=== PATIENT | female | born 1930 | race African-American/Black ===

== ENCOUNTER 2019-03-17 09:22 | Observation (INO) ==
[2019-03-17] MEDS ORDERED: ASPIRIN PO ONE (09:52)
[2019-03-17] MEDS ORDERED: PEPCID PO ONE (09:53)
[2019-03-17] MEDS ORDERED: PROTONIX PO ONE (09:54)
[2019-03-17] MEDS ORDERED: G.I. COCKTAIL PO ONE (09:54)
--- NOTE | 2019-03-17 10:20 | Diag Imaging Result Doc PS360 ---
EXAM: CHEST-PORTABLE HISTORY: cp TECHNIQUE: Portable chest single view COMPARISON: 08/18/2017 FINDINGS: The lungs are well expanded. The heart is mildly enlarged. The vessels are not distended. There are no infiltrates. No effusion identified. Long-standing shoulder arthritis bilaterally. IMPRESSION: Mild cardiomegaly. Electronically signed by Merrill Thomas 03/17/2019 10:18 AM
[2019-03-17 10:53] LABS: BASO# 0.03 X1000 (0.0-0.2); BASO% 0.5 % (0.0-0.8); EOS# 0.08 X1000 (0.0-0.7); EOS% 1.3 % (0.0-10.0); HEMATOCRIT 38.5 % (37.0-47.0); HEMOGLOBIN 12.7 g/dL (12.0-16.0); IMM GRAN# 0.01 X1000 (0.0-0.04); IMM GRAN% 0.2 % (0.0-0.5); LYMPH# 2.14 X1000 (1.2-3.4); LYMPH% 35.5 % (20.5-51.1); MCH 31.6 PG (27-31); MCV 95.8 FL (81-99); MONO# 0.49 X1000 (0.11-0.59); MONO% 8.1 % (1.7-9.3); MPV 10.2 FL (7.4-10.4); NEUT# 3.27 X1000 (1.4-6.5); NEUT% 54.4 % (42.2-75.2); PLT 241 X1000 (130-400); RBC 4.02 XMIL (4.2-5.4); RDW 12.3 % (11.5-14.5); WBC 6.02 X1000 (4.8-10.8)
--- NOTE | 2019-03-17 11:11 | EKG Report ---
Test Performed on : 03/17/2019 10:21:47 AM Test Reason : cp Blood Pressure : / mmHG Vent. Rate : 085 BPM Atrial Rate : 085 BPM P-R Int : 162 ms QRS Dur : 092 ms QT Int : 400 ms P-R-T Axes : 067 -34 048 degrees QTc Int : 476 ms Normal sinus rhythm. Left axis deviation Minimal voltage criteria for LVH, may be normal variant Abnormal ECG When compared with ECG of 18-AUG-2017 17:23, No significant change was found Unconfirmed Result
[2019-03-17 11:15] LABS: CALCIUM 10.1 mg/dL (8.8-10.2); CREATININE 0.9 mg/dL (0.5-0.9); POTASSIUM 3.6 mmol/L (3.5-5.1)
[2019-03-17 11:33] LABS: BILIRUBIN URINE NEGATIVE (NEGATIVE); BLOOD URINE NEGATIVE (NEGATIVE); CLARITY CLEAR (CLEAR); COLOR YELLOW; GLUCOSE URINE NEGATIVE (NEGATIVE); KETONE URINE NEGATIVE (NEGATIVE); LEUKOCYTES URINE NEGATIVE (NEGATIVE); NITRITE URINE NEGATIVE (NEGATIVE); PROTEIN URINE NEGATIVE (NEGATIVE); UROBILINOGEN URINE NORMAL
[2019-03-17 11:38] LABS: URINE BACTERIA NEGATIVE /HFP; URINE CAST NONE SEEN /LPF; URINE CRYSTAL NONE SEEN /HPF; URINE EPITHELIAL CELLS <10 /HPF (<10); URINE RBC <10 /HPF (<10); URINE SOURCE CLEAN CATCH; URINE WBC <10 /HPF (<10); URINE YEAST NONE SEEN /HPF
--- NOTE | 2019-03-17 12:29 | PROVIDER DOCUMENTATION ---
This chart was entered by Kimberli Chand Scribe, acting as scribe for Raghu Longo MD. HPI-Chest Pain - General Chief Complaint: Chest Pain Stated Complaint: CP LAST NIGHT Time Seen by Provider: 03/17/19 09:39 Source: patient Allergies/Adverse Reactions: Patient Allergies Allergy/AdvReac Type Severity Reaction Status Date / Time No Known Allergies Allergy Verified 09/12/17 13:43 Home Medications: Home Medication List Medication Instructions Recorded Confirmed Last Taken Type Amlodipine Besylate [Norvasc] 10 mg PO DAILY 03/14/14 09/12/17 09/12/17 History Levothyroxine [Synthroid] 75 mcg PO DAILY 03/14/14 09/12/17 09/12/17 History Simvastatin [Zocor] 20 mg PO DAILY 03/14/14 09/12/17 09/11/17 History Aspirin 81 mg PO DAILY 08/18/17 09/12/17 09/12/17 History Acetaminophen with Codeine 1 ea PO Q4H PRN PRN #5 tab 09/12/17 Unknown Rx [Tylenol with Codeine #3] Butalbital/APAP/Caffeine [Fioricet] 1 tab PO DAILY PRN 09/12/17 09/12/17 Unknown History - History of Present Illness-CP Nature of Presenting Problem: Patient is a 89 year old female who presents with left side chest pain that started last night. Denies nausea, shortness of breath, and diaphoresis. Reports pain does not radiate. No prior cardaic disease or surgery. Location: reports: other (left side) Chest Pain Radiation: reports: no radiation Quality of Pain: reports: throbbing Severity in ED: mild Onset/Duration: last night Timing: still present Context/Activities at Onset: reports: light activity Modifying Factors: improves with: nothing Associated Symptoms: reports: denies symptoms Similar Symptoms Previously?: Yes Recently Seen Here or By Another Healthcare Provider: No Review of Systems - Adult - REVIEW OF SYSTEMS - ADULT Constitutional: reports: no symptoms reported. denies: chills, fever, fatique Eyes: reports: no symptoms reported Ears, Nose, Mouth & Throat: reports: no symptoms reported Cardiovascular: reports: see HPI, chest pain. denies: irregular heart rate, palpitations Respiratory: reports: no symptoms reported. denies: cough, shortness of breath, wheezing Gastrointestinal: reports: no symptoms reported. denies: diarrhea, nausea, vomiting Genitourinary: reports: no symptoms reported. denies: dysuria, hematuria, urinary retention Musculoskeletal: reports: no symptoms reported Integumentary: reports: no symptoms reported Neurological: reports: no symptoms reported Psychiatric: reports: no symptoms reported Endocrine: reports: no symptoms reported Hematologic/Lymphatic: reports: no symptoms reported Allergic/Immunologic: reports: no symptoms reported All Other Systems: Reviewed and Negative Past History - Adult - PAST MEDICAL HISTORY-ADULT Review of Records: reports: Old Records Reviewed, Nursing Assessment Review, Medications Reviewed, Social history reviewed & non-contributory. Major Childhood Illnesses: reports: denies history Cardiovascular: reports: HTN, hyperlipidemia Respiratory: reports: sleep apnea, other (sleep apnea) Gastrointestinal: reports: denies history Obstetrical/Gynecological: reports: denies history Genitourinary: reports: denies history Musculoskeletal: reports: denies history Neurological: reports: denies history Endocrine/Immune: reports: thyroid disorder Other Conditions: reports: denies history - PRIOR SURGERIES/PROCEDURES Surgical/Procedure History: reports: appendectomy, hysterectomy, BTL - IMMUNIZATION STATUS Childhood Immunizations: See Nurse Assessment Flu Vaccine: See Nurse Assessment - FAMILY HISTORY Family History: reviewed, not pertinent - SOCIAL HISTORY Smoking: denies Substance Use: denies Physical Exam-General - PHYSICAL EXAM-ADULT Initial Vital Signs Reviewed: Yes - CONSTITUTIONAL General Appearance: alert, no apparent distress. negative: lethargic, slow to respond - RESPIRATORY Respiratory: chest non-tender, lungs clear, normal breath sounds. negative: stridor, wheezing - CARDIOVASCULAR Cardiovascular: normal peripheral pulses, regular rate, rhythm. negative: tachycardia, systolic murmur - GASTROINTESTINAL (ABDOMEN) Abdominal Exam: normal bowel sounds, non tender, soft. negative: rigid, hernia - MUSCULOSKELETAL Extremity: non-tender, normal inspection. negative: deformity, swelling - SKIN Integumentary: normal color, normal turgor, warm/dry. negative: cyanosis, ecchymosis, erythema, jaundice - NEUROLOGIC Neurologic: grossly normal. negative: aphasia, facial droop - PSYCHIATRIC Psych/Mental Status: normal mood/affect, oriented x 3. negative: anxious Progress - PLAN OF CARE/RESULTS Progress/Plan/Lab Results: Vital Signs - 8 hr 03/17/19 09:29 03/17/19 11:03 Temperature 98.5 F Pulse Rate 89 79 Respiratory Rate 16 14 Blood Pressure 154/071 129/79 O2 Sat by Pulse Oximetry 98 97 Laboratory Results - last 24 hr 03/17/19 03/17/19 03/17/19 10:35 10:35 10:35 WBC 6.02 RBC 4.02 L Hgb 12.7 Hct 38.5 MCV 95.8 MCH 31.6 H MCHC 33.0 RDW Std Deviation 12.3 Plt Count 241 MPV 10.2 Immature Gran % (Auto) 0.2 Neut % (Auto) 54.4 Lymph % (Auto) 35.5 Young % (Auto) 8.1 Eos % (Auto) 1.3 Baso % (Auto) 0.5 Immature Gran # (Auto) 0.01 Neut # (Auto) 3.27 Lymph # (Auto) 2.14 Young # (Auto) 0.49 Eos # (Auto) 0.08 Baso # (Auto) 0.03 Sodium 143 Potassium 3.6 Chloride 105 Carbon Dioxide 27 Anion Gap 11 BUN 14 Creatinine 0.9 Estimated GFR/1.73 m2 59 BUN/Creatinine Ratio 16 Glucose 96 Calculated Osmolality 285 Calcium 10.1 Magnesium Troponin T Free T4 1.46 Urine Source Urine Color Urine Clarity Urine pH Ur Specific [place] Urine Protein Urine Ketones Urine Blood Urine Nitrite Urine Bilirubin Urine Urobilinogen Urine Microscopic RBC Urine WBC Urine Microscopic WBC Ur Epithelial Cells Urine Crystals Urine Bacteria Urine Casts Urine Yeast Urine Glucose 03/17/19 03/17/19 03/17/19 10:35 10:35 11:15 WBC RBC Hgb Hct MCV MCH MCHC RDW Std Deviation Plt Count MPV Immature Gran % (Auto) Neut % (Auto) Lymph % (Auto) Young % (Auto) Eos % (Auto) Baso % (Auto) Immature Gran # (Auto) Neut # (Auto) Lymph # (Auto) Young # (Auto) Eos # (Auto) Baso # (Auto) Sodium Potassium Chloride Carbon Dioxide Anion Gap BUN Creatinine Estimated GFR/1.73 m2 BUN/Creatinine Ratio Glucose Calculated Osmolality Calcium Magnesium 2.0 Troponin T < 0.010 Free T4 Urine Source CLEAN CATCH Urine Color YELLOW Urine Clarity CLEAR Urine pH 7.0 Ur Specific [place] 1.000 Urine Protein NEGATIVE Urine Ketones NEGATIVE Urine Blood NEGATIVE Urine Nitrite NEGATIVE Urine Bilirubin NEGATIVE Urine Urobilinogen NORMAL Urine Microscopic RBC <10 Urine WBC NEGATIVE Urine Microscopic WBC <10 Ur Epithelial Cells <10 Urine Crystals NONE SEEN Urine Bacteria NEGATIVE Urine Casts NONE SEEN Urine Yeast NONE SEEN Urine Glucose NEGATIVE Orders Category Date Time Status Cardiac Monitoring DIRECTED Care 03/17/19 09:51 Active Saline Loc NOW Care 03/17/19 09:51 Active CHEST-PORTABLE [RAD] Stat Exams 03/17/19 09:50 Completed BASIC METABOLIC PANEL [CHEM] Stat Lab 03/17/19 10:35 Completed CBC WITH ELECTRONIC DIFF [HEME] Stat Lab 03/17/19 10:35 Completed FREE T4 Stat Lab 03/17/19 10:35 Completed MAGNESIUM [CHEM] Stat Lab 03/17/19 10:35 Completed TROPONIN T Stat Lab 03/17/19 10:[address] W/POSS RFLX CULT [URINALYSIS] Stat Lab 03/17/19 11:15 Completed Aspirin Med 03/17/19 09:52 Discontinued 243 mg PO NOW ONE Famotidine [Pepcid] Med 03/17/19 09:53 Discontinued 40 mg PO NOW ONE Lido/Dalton Alk/Al&mg Hydrox [G.i. Cocktail] Med 03/17/19 09:54 Discontinued 30 ml PO NOW ONE Pantoprazole [Protonix] Med 03/17/19 09:54 Discontinued 40 mg PO NOW ONE EKG [EKG] Stat Ther 03/17/19 09:51 Draft Result Diagrams: 03/17/19 10:35 03/17/19 10:35 - EKG 1 Time of EKG reading by physician:: 10:21 EKG Read and Signed by:: Raghu Longo EKG Interpretation (*Must complete 3 of following elements*): Abnormal Rate: 85 Rhythm: normal sinus rhythm Kinzers: left QRS: LVH (minimal voltage criteria, may be normal variant) ST Wave: normal Comments: abnormal ECG - XRAY 1 XRAY Study: Chest Impression: See EMR Report (EXAM: CHEST-PORTABLE HISTORY: cp TECHNIQUE: Portable chest single view COMPARISON: 08/18/2017 FINDINGS: The lungs are well expanded. The heart is mildly enlarged. The vessels are not distended. There are no infiltrates. No effusion identified. Long-standing shoulder arthritis bilaterally. IMPRESSION: Mild cardiomegaly. Electronically signed by Merrill Thomas 03/17/2019 10:18 AM 03/17/19 1018 Interpreting Physician: Merrill Thomas MD Dictated Date/Time: 03/17/19 1017 cc: Raghu Longo MD; Mahin Weathers MD) - CONSULTS/PCP/HOSPITALIST Notification #1 *Consult/PCP/Hospitalist*: DR Ulises KEEN Time Discussed: 12:24 Consult Disposition: Admit Departure - Departure Date of Disposition Decision: 03/17/19 Time of Disposition Decision: 12:24 DIAGNOSIS: Chest pain Disposition: ADMITTED INPATIENT 09 Certified Medical Emergency: Emergent Condition: Stable Referrals and Follow-Ups: Mahin Weathers MD [Primary Care Provider] - - Critical Care Note This patient required my direct & personal management of CC.: No Attestation - Physician/ BAM Attestation Patient care was provided by Advanced Practice Provider:: No The physician spent face to face time with patient:: Yes Advanced Practice Provider documentation review:: Supervising physician onsite and consulted in the evaluation and care of this patient. The physician did have a face to face encounter with the patient. This chart was documented by the indicated scribe, (Kimberli Chand Scribe) and accurately reflects the services I performed and decisions made by me, Raghu Longo MD, as attested by the provider's signature.
[2019-03-17] MEDS ORDERED: TYLENOL WITH CODEINE #3 PO PRN (13:31)
--- NOTE | 2019-03-17 14:18 | HISTORY AND PHYSICAL ---
PRIMARY CARE PROVIDER: Mahin Weathers MD. CHIEF COMPLAINT: Chest pain. HISTORY OF PRESENT ILLNESS: This is an 89-year-old female of -[place] decent that complained of chest pain that started earlier on 03/16/2019 before bed. She states the pain was about 5 out of 10 with nonradiation, stating that the location was the left side with duration being 10-15 minutes, rating it a dull pain, no associated symptoms, no shortness of breath, nausea, diaphoresis noted. The patient states that the pain occured while resting and then subsequently started again the next morning with left-sided chest pain that was a dull ache lasting about 10-15 minutes in duration. No associated shortness of breath, nausea or diaphoresis at that time though the patient felt that with the second episode of chest pain warranted coming into the emergency room to be evaluated. PAST MEDICAL HISTORY: 1. Hypertension. 2. Hyperlipidemia. 3. Sleep apnea. 4. Hypothyroidism. PAST SURGICAL HISTORY: 1. Appendectomy. 2. Hysterectomy. 3. Bilateral tubal ligation. SOCIAL HISTORY: She is , negative smoker, alcohol or illicit drug use. FAMILY HISTORY: Unknown at this time. REVIEW OF SYSTEMS: General: The patient denies any fever, chills or flulike symptoms. HEENT: The patient denies congestion, headache, vision changes at this time. Neck: No neck pain complained of. Endocrine: The patient denies excessive thirst, urination or intolerance to heat or cold. Cardiovascular: The patient denies palpitations, orthopnea, PND. The patient states she does not feel that she has been dizzy or had any weakness. The patient does state that she has had some lower extremity edema in the past, but it is resolved at this time. Respiratory: The patient denies cough, dyspnea or shortness of breath. The patient states she is able to lay down flat in the evening. GI: The patient denies nausea, vomiting or any pain. : The patient denies any blood in her stool or urine. Musculoskeletal: The patient is able to move all arms without any pain at this time. Neurologic: The patient denies any syncope, dizziness or motor deficits at this time, numbness or tingling. Hematologic: No bruising noted. Psych: The patient was alert and oriented x 3 without any mental illness or depression noted. Skin: No rash or lesions noted at this time. LABORATORY AND DIAGNOSTICS: The patient's chest x-ray shows mild cardiomegaly. The patient's EKG shows normal sinus rhythm with heart rate in the 90s. The patient's labs show WBC 6.02, RBC 4.02, hemoglobin 12.7, hematocrit 38.5, platelets 241,000, sodium 143, potassium 3.6, chloride 105, BUN 14, creatinine 0.9, glucose 96, troponin x 1 negative with free T4 of 1.46. Urine is negative for protein, blood, ketones, nitrites, WBCs or bacteria. PHYSICAL EXAMINATION: VITAL SIGNS: Temperature 98.4; heart rate 90; respirations 20; blood pressure 151/82; 97% on room air. GENERAL: This is an 89-year-old -Al[place]ian female that appears well nourished. HEENT: The patient is normocephalic. PERRLA. NECK: No JVD noted. No lymphadenopathy. CARDIOVASCULAR: No murmurs, gallops or rubs noted. Rate and rhythm are regular. RESPIRATORY: Lung sounds are clear to auscultation and nonlabored. GASTROINTESTINAL: Soft and palpable x all 4 quadrants. NEUROLOGICAL: Cranial nerves II through XII grossly intact. MUSCULOSKELETAL: 5 out of 5 on all 4 extremities. No edema noted to lower extremities. SKIN: Warm, dry and intact. ASSESSMENT AND PLAN: 1. Chest pain. Will trend troponins, follow up with a Lexiscan in the a.m. and obtain an echo. 2. Hypothyroidism. Will maintain home meds. T4 within normal limits. 3. Hyperlipidemia. Continue home medications. Further recommendations will be pending per clinical course and response to therapy. Dictated by DIANDRA Botello for Ever Emerson MD Addendum: Patient seen and examined by myself. Agree with DIANDRA note. It reflects my assessment and plan. Patient is being admitted to hospital for chest pain. Will trend troponins, will order an echocardiogram and will order Lexiscan as well. Depending upon results we may call Cardiology. cc: MD Ever Rowell MD [facility]
[2019-03-17 16:32] LABS: CLARITY CLEAR (CLEAR); COLOR YELLOW
[2019-03-17 16:33] LABS: BILIRUBIN URINE NEGATIVE (NEGATIVE); BLOOD URINE NEGATIVE (NEGATIVE); GLUCOSE URINE NEGATIVE (NEGATIVE); KETONE URINE NEGATIVE (NEGATIVE); LEUKOCYTES URINE NEGATIVE (NEGATIVE); NITRITE URINE NEGATIVE (NEGATIVE); PROTEIN URINE NEGATIVE (NEGATIVE); UROBILINOGEN URINE NORMAL
[2019-03-17 16:40] LABS: URINE SOURCE CLEAN CATCH
[2019-03-17 16:42] LABS: URINE RBC <10 /HPF (<10); URINE WBC <10 /HPF (<10)
[2019-03-17 16:43] LABS: URINE BACTERIA NEGATIVE /HFP; URINE CAST NONE SEEN /LPF; URINE CRYSTAL NONE SEEN /HPF; URINE EPITHELIAL CELLS <10 /HPF (<10); URINE SMALL ROUND CELLS TRANSITIONAL PRESENT; URINE YEAST NONE SEEN /HPF
[2019-03-18 06:50] LABS: CHOLESTEROL 163 mg/dL (0-200); HDL 62 mg/dL (45-65); LDL 84 mg/dL; TRIGLYCERIDES 84 mg/dL (35-135); VLDL 17 mg/dL
[2019-03-18] MEDS ORDERED: SYNTHROID PO SCH (07:00)
[2019-03-18] MEDS ORDERED: LEXISCAN ONE (10:00)
--- NOTE | 2019-03-18 12:19 | GRADED EXERCISE REPORT ---
DATE: 03/18/2019 Patient is stable. She underwent Lexiscan per protocol. Blood pressure 146/80, heart rate 85. Her baseline EKG showed no significant ST changes. She tolerated chemical without difficulty. No chest pain was induced. There were no significant ST changes during her test. The test was felt to be clinically negative, electrically negative. Myocardial perfusion reported separately. Peak heart rate 105, peak blood pressure 190/89. cc: Kin Moran MD
[2019-03-18 15:48] VITALS: BP 137/60
--- NOTE | 2019-03-18 16:07 | Diag Imaging Result Document ---
PROCEDURE NAME: MYOCARDIAL PERF SCAN, STR/REST - 03/17/2019 PROCEDURE: Lexiscan sestamibi interpretation. SUMMARY: The patient was administered 10.7 mCi of technetium-99m sestamibi, after which resting cardiac images were obtained. The patient was subsequently administered Lexiscan 0.4 mg intravenously, after which the heart rate went from 85 beats per minute to 105 beats per minute, and the blood pressure went from 146/80 to 190/88. With Lexiscan, the patient denied chest discomfort. Following the administration of Lexiscan, the patient was administered 30.9 mCi of technetium-99m sestamibi, after which gated stress cardiac images were obtained. Baseline ECG demonstrates sinus rhythm and left axis deviation. With Lexiscan, there were no diagnostic ST-segment changes. SPECT images were reconstructed in the short, horizontal long, vertical long axis. Review of these images demonstrated homogeneous uptake of radiopharmaceutical on both stress and resting images. Due to technical difficulties, gated images could not be processed to provide reliable wall motion evaluation and left ventricular ejection fraction evaluation. CONCLUSIONS: 1. Adequate response to Lexiscan. 2. Clinically negative for chest pain. 3. Electrocardiographically negative for Lexiscan-induced myocardial ischemia. 4. Normal Lexiscan sestamibi images. cc: MD Ever Carr MD
[2019-03-18] MEDS ORDERED: ZOCOR PO SCH (21:00)
--- NOTE | 2019-03-18 23:44 | ECHO REPORT ---
ORDER DATE: 03/17/2019 MEASUREMENTS: Septal thickness 1.5, left ventricular internal diameter in diastole 3.6, posterior wall thickness 1.4, left ventricular internal diameter in systole 2.4, left atrium 2.9, aortic root 2.5. SUMMARY: 1. Technically difficult study due to limited acoustic window quality. Intravenous echocontrast agent Optison was utilized to enhance endocardial definition. 2. The aortic valve is without evidence of structural abnormality and opens adequately on 2- dimensional images. Peak gradient across the aortic valve is less than 10 mmHg. There is trace aortic regurgitation. Mitral, tricuspid and pulmonic valves are without evidence of structural abnormality. There is mild pulmonic insufficiency. The aortic root is normal in size. 3. Normal left ventricular chamber size with moderate concentric left ventricular hypertrophy is demonstrated. Estimated left ventricular ejection fraction appears to be at least 65%. No regional wall motion abnormalities are evident. Doppler suggests grade 1 left ventricular diastolic dysfunction. Left atrium, right atrium and right ventricle are normal in size, with normal right ventricular systolic function. 4. No pericardial effusion. 5. Appearance of inferior vena cava suggests normal central venous pressure. CONCLUSIONS: 1. Technically difficult study. 2. No significant valvular abnormality demonstrated. 3. Moderate concentric left ventricular hypertrophy with estimated left ventricular ejection fraction at least 65%. 4. Grade 1 left ventricular diastolic dysfunction suggested. cc: MD Ever Carr MD
--- NOTE | 2019-03-19 19:54 | DISCHARGE SUMMARY ---
ADMISSION DATE: 03/17/2019 DISCHARGE DATE: 03/18/2019 PRIMARY CARE PHYSICIAN: Mahin Weathers M.D. ADMISSION DIAGNOSES: 1. Chest pain. 2. Hypothyroidism. 3. Hyperlipidemia. DISCHARGE DIAGNOSES: 1. Chest pain, resolved. Ruled out by myocardial perfusion scan. 2. Hypothyroidism. 3. Hyperlipidemia. SUMMARY OF FINDINGS: This is an 89-year-old female who complained of chest pain that was a 5/10, nonradiating, located on the left side of her chest with a duration of 10 to 15 minutes, rating it as a dull pain with no associated shortness of breath, nausea or diaphoresis noted. States that the pain occurred while resting in and then subsequently started again the next morning with left-sided chest pain that was a dull ache, lasting 10 to 15 minutes in duration. She was admitted. She had 3 troponins that were negative. We did a myocardial perfusion scan that was read as clinically negative for chest pain and so it was felt that she could safely be discharged home. DISCHARGE MEDICATIONS: She will continue her home medications of Norvasc 5 mg p.o. b.i.d., aspirin 81 mg p.o. daily, Synthroid 50 mcg p.o. daily, Relafen 500 mg p.o. b.i.d., and Zocor 40 mg p.o. daily. FOLLOWUP: She will need to follow up with her primary care physician in 1 to 2 weeks and call his office for an appointment. All discharge instructions were reviewed with the patient, and she verbalized understanding. TIME SPENT WITH PATIENT: 33 minutes. Dictated by DIANDRA Dean for Ever Emerson MD cc: DIANDRA Dean MD John V. Irle, MD
== END 2019-03-18 18:27 | disposition home or self-care (01) ==
LOC: P.ED 09:22 → P.MEDSURG 09:22
PROVIDERS: ATTEND Internal Medicine
CPT/HCPCS: 36415; 71010; 71045; 78452; 80048; 80061; 81001; 83735; 84439; 84484; 85025; 93005; 93017; 93306; A9270; A9500; C8929; J2785; Q9957